=== PATIENT | female | born 2000 | race Caucasian/White ===

== ENCOUNTER 2018-04-05 17:50 | Emergency (ER) | payer OTHER ==
[2018-04-05 18:39] VITALS: BP 123/76
--- NOTE | 2018-04-05 19:43 | UC ---
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 In no acute distress, also denies any neck pain or fever. Symptoms reproduced with palpation and manipulation of the ear. Denies any trauma. No remitting or worsening factors. No medications taken at home. - History of Current Complaint Chief Complaint: UCEar Stated Complaint: RIGHT EAR PAIN Time Seen by Provider: 04/05/18 19:20 Hx Last Menstrual Period: ~03/11/18 Pain Intensity: 4 - Allergies/Home Medications Allergies/Adverse Reactions: Allergies Allergy/AdvReac Type Severity Reaction Status Date / Time No Known Allergies Allergy Verified 04/05/18 18:39 Home Medications: Home Medications Norgestimate-Ethinyl Estradiol [Ortho Tri-Cyclen Lo Tablet] 1 each PO DAILY [History Confirmed 04/05/18] PMH/Surg Hx/FS Hx/Imm Hx - Additional Past Medical History Additional PMH: No past medical history. No history of diabetes. Previously Healthy: Yes - Surgical History Surgical History: None - Family History Known Family History: Positive: Unknown - Social History Alcohol Use: Rare Substance Use Type: None Smoking Status (MU): Never Smoked Tobacco Review of Systems ENT: Ear Ache All Other Systems Reviewed And Are Negative: Yes Physical Exam - Summary Physical Exam Summary: Gen: alert, in no acute distress HEENT: EOMI, normocephalic, atruamatic. Erythematous and swollen right ear canal is tender upon examination consistent with otitis externa Neck: supple, no masses CV: Normal s1 s2, no murmurs Resp: normal breath sounds b/l GI: no tenderness, no masses Musculoskeletal: normal ROM all 4 extremities Skin: no rash Lymph: no lymphadenopathy Psych: appropriate affect, oriented Triage Information Reviewed: Yes Vital Signs: Initial Vital Signs Temp 37.1 C 04/05/18 18:36 Pulse 80 04/05/18 18:36 Resp 16 04/05/18 18:36 BP 123/76 04/05/18 18:36 Pulse Ox 100 04/05/18 18:36 Ear Complaint Course/Dx - Course Course Of Treatment: Patient started on otic antibiotics and instructed to follow up with primary care physician. Agrees to and understands discharge instructions. Hearing is unaffected. - Differential Dx/Diagnosis Provider Diagnoses: Otitis externa Discharge - Sign-Out/Discharge Documenting (check all that apply): Patient Departure All imaging exams completed and their final reports reviewed: No Studies - Discharge Plan Condition: Stable Disposition: HOME Prescriptions: Ciproflox/Dexameth OTIC.SUSP* [Ciprodex OTIC.SUSP*] 4 drop RIGHT EAR BID 7 Days #1 btl Patient Education Materials: Otitis Externa (DC) Referrals: [facility] [Provider Group] Additional Instructions: PLEASE USE MEDICATIONS DIRECTED PLEASE MAKE AN APPOINTMENT TO BE SEEN BY A PRIMARY CARE DOCTOR WITHIN 1-2 WEEKS PLEASE REPORT TO THE ER FOR ANY WORSENING OR CONCERNING SYMPTOMS - Billing Disposition and Condition Condition: STABLE Disposition: Home
== END 2018-04-05 19:52 | disposition home or self-care (01) ==
LOC: UCCORT 17:50
DX: H60.91 Unspecified otitis externa, right ear (principal)
CPT/HCPCS: 99202; G0463